=== PATIENT | female | born 1955 | race Caucasian/White ===

== ENCOUNTER 2021-10-28 18:46 | Emergency (ER) | payer BC, OTHER ==
[~2021-10-28] VITALS: Ht 157.5 cm; Wt 89.1 kg
[~2021-10-28 18:46] MED LIST: ASPI-611 PO; ATOR40TA PO; FERR325T28 PO; FURO-150 PO; HYDR-3965 PO; LEVO750T46 PO; LISI20TA28 PO; LOP12.5T PO
[2021-10-28 19:18] LABS: BASOPHILS # (AUTO) 0.1 X10'3 (0-0.2); BASOPHILS % (AUTO) 0.8 % (0-1); EOSINOPHILS # (AUTO) 0.4 X10'3 (0-0.9); EOSINOPHILS % (AUTO) 5.3 % (0-6); HEMATOCRIT 33.1 % (35.0-45.0); HEMOGLOBIN 10.7 g/dl (12.0-16.0); LYMPHOCYTES # (AUTO) 1.9 X10'3 (1.1-4.8); LYMPHOCYTES % (AUTO) 26.6 % (21-51); MEAN CORPUSCULAR HEMOGLOBIN 26.1 PG (27.0-31.0); MEAN CORPUSCULAR HGB CONC 32.2 g/dL (33.0-36.5); MONOCYTES # (AUTO) 0.5 X10'3 (0-0.9); MONOCYTES % (AUTO) 6.7 % (2-12); NEUTROPHILS # (AUTO) 4.2 X10'3 (1.8-7.7); NEUTROPHILS % (AUTO) 60.6 % (42-75); PLATELET COUNT 206 X10'3 (140-440); RED BLOOD COUNT 4.08 X10'6 (4.20-5.60); RED CELL DISTRIBUTION WIDTH 15.6 % (11.5-14.5)
[2021-10-28 19:34] LABS: ALANINE AMINOTRANSFERASE 14 U/L (12-78); ALBUMIN 3.1 G/DL (3.4-5.0); ALBUMIN/GLOBULIN RATIO 0.8 (1.1-1.5); ALKALINE PHOSPHATASE 84 IU/L (46-116); ANION GAP 7 (8-16); ASPARTATE AMINO TRANSFERASE 15 U/L (10-37); BILIRUBIN,TOTAL 0.2 MG/DL (0.1-1.0); BLOOD UREA NITROGEN 11 MG/DL (7-18); BUN/CREATININE RATIO 16.9 (6.6-38.0); CALCIUM 8.5 MG/DL (8.5-10.1); CHLORIDE 105 MMOL/L (99-107); CREATININE 0.65 MG/DL (0.40-0.90); GLUCOSE 135 MG/DL (70-104); POTASSIUM 3.4 MMOL/L (3.5-5.1); SODIUM 144 MMOL/L (135-145); TOTAL CARBON DIOXIDE 32.3 MMOL/L (24-32); eGFR > 90 ML/MIN
[2021-10-28 19:55] VITALS: BP 149/72
== END 2021-10-28 19:57 | disposition home or self-care (01) ==
LOC: ER 18:46
DX: R07.89 Other chest pain (principal); R05.9 Cough, unspecified; I25.10 Atherosclerotic heart disease of native coronary artery without angina pectoris; Z95.5 Presence of coronary angioplasty implant and graft; Z88.8 Allergy status to other drugs, medicaments and biological substances; Z79.82 Long term (current) use of aspirin; Z79.899 Other long term (current) drug therapy
CPT/HCPCS: 36415; 71045; 80053; 83880; 84484; 85025; 93005; 99285

== ENCOUNTER 2022-02-25 15:59 | Emergency (ER) | payer BC ==
[~2022-02-25] VITALS: Ht 157.5 cm; Wt 93.6 kg
[~2022-02-25 15:59] MED LIST changes: -HYDR-3965 PO; -LEVO750T46 PO; +LEVO750T68 PO
[2022-02-25 17:42] LABS: BASOPHILS # (AUTO) 0.1 X10'3 (0-0.2); BASOPHILS % (AUTO) 0.7 % (0-1); EOSINOPHILS # (AUTO) 0.1 X10'3 (0-0.9); EOSINOPHILS % (AUTO) 1.3 % (0-6); HEMATOCRIT 40.3 % (35.0-45.0); HEMOGLOBIN 12.9 g/dl (12.0-16.0); LYMPHOCYTES # (AUTO) 1.9 X10'3 (1.1-4.8); LYMPHOCYTES % (AUTO) 18.3 % (21-51); MEAN CORPUSCULAR HEMOGLOBIN 25.7 PG (27.0-31.0); MEAN CORPUSCULAR VOLUME 80.2 FL (78-98); MONOCYTES # (AUTO) 0.8 X10'3 (0-0.9); MONOCYTES % (AUTO) 7.1 % (2-12); NEUTROPHILS # (AUTO) 7.7 X10'3 (1.8-7.7); NEUTROPHILS % (AUTO) 72.6 % (42-75); PLATELET COUNT 246 X10'3 (140-440); RED BLOOD COUNT 5.02 X10'6 (4.20-5.60); RED CELL DISTRIBUTION WIDTH 15.5 % (11.5-14.5); WHITE BLOOD COUNT 10.6 X10'3 (4.5-11.0)
[2022-02-25 18:01] LABS: ALANINE AMINOTRANSFERASE 11 U/L (12-78); ALBUMIN 3.9 G/DL (3.4-5.0); ALKALINE PHOSPHATASE 95 IU/L (46-116); ANION GAP 8 (8-16); ASPARTATE AMINO TRANSFERASE 1 U/L (10-37); BILIRUBIN,TOTAL 0.2 MG/DL (0.1-1.0); BLOOD UREA NITROGEN 21 MG/DL (7-18); BUN/CREATININE RATIO 31.8 (6.6-38.0); CALCIUM 9.5 MG/DL (8.5-10.1); CHLORIDE 106 MMOL/L (99-107); CREATININE 0.66 MG/DL (0.40-0.90); GLUCOSE 118 MG/DL (70-104); POTASSIUM 4.3 MMOL/L (3.5-5.1); SODIUM 144 MMOL/L (135-145); TOTAL CARBON DIOXIDE 30.2 MMOL/L (24-32); TOTAL PROTEIN 7.9 G/DL (6.4-8.2); eGFR 89 ML/MIN
[2022-02-25 21:39] VITALS: BP 142/77
== END 2022-02-25 21:46 | disposition home or self-care (01) ==
LOC: ER 15:59
DX: R77.8 Other specified abnormalities of plasma proteins (principal); I10 Essential (primary) hypertension; R07.89 Other chest pain; Z88.6 Allergy status to analgesic agent; Z88.8 Allergy status to other drugs, medicaments and biological substances
CPT/HCPCS: 36415; 71045; 80053; 83880; 84484; 85025; 93005; 99285

== ENCOUNTER 2022-03-23 05:08 | Emergency (ER) | payer BC ==
[~2022-03-23] VITALS: Ht 157.5 cm; Wt 94.1 kg
[2022-03-23] MEDS ORDERED: furosemide 10 MG/1 ML 10ml inj IV ONE (05:50)
[2022-03-23 06:35] LABS: BASOPHILS # (AUTO) 0.1 X10'3 (0-0.2); BASOPHILS % (AUTO) 1.1 % (0-1); EOSINOPHILS # (AUTO) 0.1 X10'3 (0-0.9); EOSINOPHILS % (AUTO) 0.9 % (0-6); HEMATOCRIT 37.6 % (35.0-45.0); HEMOGLOBIN 12.2 g/dl (12.0-16.0); LYMPHOCYTES # (AUTO) 1.3 X10'3 (1.1-4.8); LYMPHOCYTES % (AUTO) 11.3 % (21-51); MEAN CORPUSCULAR HEMOGLOBIN 26.2 PG (27.0-31.0); MEAN CORPUSCULAR HGB CONC 32.5 g/dL (33.0-36.5); MEAN CORPUSCULAR VOLUME 80.6 FL (78-98); MEAN PLATELET VOLUME 10.1 FL (7.4-10.4); MONOCYTES # (AUTO) 0.5 X10'3 (0-0.9); MONOCYTES % (AUTO) 4.9 % (2-12); NEUTROPHILS # (AUTO) 9.2 X10'3 (1.8-7.7); NEUTROPHILS % (AUTO) 81.8 % (42-75); PLATELET COUNT 242 X10'3 (140-440); RED BLOOD COUNT 4.66 X10'6 (4.20-5.60); RED CELL DISTRIBUTION WIDTH 15.9 % (11.5-14.5); WHITE BLOOD COUNT 11.2 X10'3 (4.5-11.0)
[2022-03-23 06:42] LABS: ALANINE AMINOTRANSFERASE 28 U/L (12-78); ALBUMIN 3.7 G/DL (3.4-5.0); ALBUMIN/GLOBULIN RATIO 0.9 (1.1-1.5); ALKALINE PHOSPHATASE 96 IU/L (46-116); ANION GAP 5 (8-16); ASPARTATE AMINO TRANSFERASE 20 U/L (10-37); BILIRUBIN,TOTAL 0.3 MG/DL (0.1-1.0); BLOOD UREA NITROGEN 18 MG/DL (7-18); BUN/CREATININE RATIO 26.9 (6.6-38.0); CHLORIDE 104 MMOL/L (99-107); CREATININE 0.67 MG/DL (0.40-0.90); GLUCOSE 153 MG/DL (70-104); POTASSIUM 4.4 MMOL/L (3.5-5.1); SODIUM 141 MMOL/L (135-145); TOTAL CARBON DIOXIDE 32.3 MMOL/L (24-32); eGFR 88 ML/MIN
[2022-03-23 09:19] VITALS: BP 146/87
== END 2022-03-23 09:22 | disposition home or self-care (01) ==
LOC: ER 05:08
DX: I11.0 Hypertensive heart disease with heart failure (principal); I50.9 Heart failure, unspecified; E78.00 Pure hypercholesterolemia, unspecified; Z88.6 Allergy status to analgesic agent; Z88.8 Allergy status to other drugs, medicaments and biological substances
CPT/HCPCS: 36415; 71045; 80053; 83880; 84484; 85025; 85610; 93005; 96374; 99285; J1940

== ENCOUNTER 2022-04-11 03:39 | Inpatient (IN) | payer BC ==
[~2022-04-11] VITALS: Ht 157.5 cm; Wt 100.0 kg
[2022-04-11] MEDS ORDERED: aspirin 325mg tablet PO ONE (04:35)
[2022-04-11 04:45] LABS: BASOPHILS # (AUTO) 0.1 X10'3 (0-0.2); EOSINOPHILS # (AUTO) 0.2 X10'3 (0-0.9); EOSINOPHILS % (AUTO) 2.1 % (0-6); HEMATOCRIT 37.2 % (35.0-45.0); HEMOGLOBIN 11.9 g/dl (12.0-16.0); LYMPHOCYTES # (AUTO) 2.3 X10'3 (1.1-4.8); LYMPHOCYTES % (AUTO) 24.8 % (21-51); MEAN CORPUSCULAR HEMOGLOBIN 26.1 PG (27.0-31.0); MEAN CORPUSCULAR VOLUME 81.6 FL (78-98); MEAN PLATELET VOLUME 10.6 FL (7.4-10.4); MONOCYTES # (AUTO) 0.7 X10'3 (0-0.9); MONOCYTES % (AUTO) 7.3 % (2-12); NEUTROPHILS # (AUTO) 6.1 X10'3 (1.8-7.7); NEUTROPHILS % (AUTO) 64.8 % (42-75); PLATELET COUNT 242 X10'3 (140-440); RED BLOOD COUNT 4.56 X10'6 (4.20-5.60); RED CELL DISTRIBUTION WIDTH 15.7 % (11.5-14.5); WHITE BLOOD COUNT 9.5 X10'3 (4.5-11.0)
[2022-04-11 04:50] LABS: ALANINE AMINOTRANSFERASE 24 U/L (12-78); ALBUMIN 3.5 G/DL (3.4-5.0); ALBUMIN/GLOBULIN RATIO 0.9 (1.1-1.5); ALKALINE PHOSPHATASE 85 IU/L (46-116); ANION GAP 5 (8-16); ASPARTATE AMINO TRANSFERASE 14 U/L (10-37); BILIRUBIN,TOTAL 0.2 MG/DL (0.1-1.0); BLOOD UREA NITROGEN 27 MG/DL (7-18); BUN/CREATININE RATIO 25.7 (6.6-38.0); CALCIUM 8.8 MG/DL (8.5-10.1); CHLORIDE 105 MMOL/L (99-107); CREATININE 1.05 MG/DL (0.40-0.90); GLUCOSE 192 MG/DL (70-104); POTASSIUM 4.2 MMOL/L (3.5-5.1); SODIUM 140 MMOL/L (135-145); TOTAL CARBON DIOXIDE 30.5 MMOL/L (24-32); TOTAL PROTEIN 7.5 G/DL (6.4-8.2); eGFR 52 ML/MIN
[2022-04-11 04:57] LABS: MAGNESIUM 1.9 MG/DL (1.5-2.4)
[2022-04-11 05:25] LABS: LARGE PLATELETS FEW; PLATELET ESTIMATE NORMAL
[2022-04-11] MEDS ORDERED: SACU1TAB (08:22)
[2022-04-11] MEDS ORDERED: SACU1TAB PO (08:25)
[2022-04-11] MEDS ORDERED: FURO-150 PO (08:26)
[2022-04-11] MEDS ORDERED: ATOR40TA PO (08:26)
[2022-04-11] MEDS ORDERED: ASPI81TA52 PO (08:26)
[2022-04-11] MEDS ORDERED: ISOS30TA9 PO (08:27)
[2022-04-11] MEDS ORDERED: MULT-1133 PO (08:28)
[2022-04-11] MEDS ORDERED: METO-384 PO (08:28)
[2022-04-11] MEDS ORDERED: ASCO500C17 PO (08:29)
[2022-04-11] MEDS ORDERED: ACET-1025 PO (08:31)
[2022-04-11] MEDS ORDERED: isosorbide mononitrate 30mg tab.SR.24H PO ONE (09:00)
[2022-04-11] MEDS ORDERED: sacubitril/valsartan 24mg-26mg tablet PO ONE (09:00)
[2022-04-11] MEDS ORDERED: metoprolol succinate 25mg (24-HOUR) SR. Tablet PO ONE (09:00)
[2022-04-11] MEDS ORDERED: furosemide 20MG tablet PO ONE (09:00)
[2022-04-11] MEDS ORDERED: atorvastatin 20mg tablet PO ONE (09:00)
[2022-04-11] MEDS ORDERED: aminophylline 500mg/20ml vial IV PRN (11:55)
[2022-04-11] MEDS ORDERED: ondansetron/PF 4mg/2ml inj IV PRN (11:55)
[2022-04-11] MEDS ORDERED: potassium Cl 20 mEq SR tablet PO PRN ×2 (11:55)
[2022-04-11] MEDS ORDERED: PERFLUTREN PROTEIN-A MICROSPHR (Optison) 0.22 MG/ML 3ML VIAL IV ONE (11:55)
[2022-04-11] MEDS ORDERED: magnesium hydroxide 30ml (MOM) UD suspension PO PRN (11:55)
[2022-04-11] MEDS ORDERED: regadenoson 0.4mg/5ml syringe IV PRN (11:55)
[2022-04-11] MEDS ORDERED: morphine 2 MG/ML inj. syringe IV PRN ×2 (11:55)
[2022-04-11] MEDS ORDERED: magnesium Cl slow-release 64mg tablet PO PRN (11:55)
[2022-04-11] MEDS ORDERED: magnesium 4gm in 100ml NS 100 ML IV PRN (11:55)
[2022-04-11] MEDS ORDERED: mag hydrox/Alum hydrox/simeth 30ml oral suspension PO PRN (11:55)
[2022-04-11] MEDS ORDERED: metoprolol tartrate 1mg/ml inj IV PRN (11:55)
[2022-04-11] MEDS ORDERED: nitroGLYCERIN 0.4mg SUBLingual tab SL PRN ×2 (11:55→16:35)
[2022-04-11] MEDS ORDERED: potassium Cl 40MEQ/1/2NS 520ml 520 ML IV PRN (11:55)
[2022-04-11] MEDS ORDERED: bisacodyl 10mg suppository rectal RC PRN (11:55)
[2022-04-11 13:46] LABS: HEMOGLOBIN A1C 6.8 % (4.5-6.2)
[2022-04-11] MEDS: normal saline 1000ml 1,000 ML IV SCH (13:52)
--- NOTE | 2022-04-11 14:52 | NUR ---
report given to vianney in PCU
--- NOTE | 2022-04-11 14:53 | NUR ---
Patient in room ED 3. I have received report from Barbi in the ED and had the opportunity to ask questions and assume patient care.
[2022-04-11 16:15] VITALS: BP 144/53
[2022-04-11] MEDS ORDERED: LISI5TAB22 PO (16:20)
[2022-04-11] MEDS ORDERED: ISOS30TA84 PO (16:20)
[2022-04-11] MEDS ORDERED: FURO20TA4 PO (16:20)
[2022-04-11] MEDS ORDERED: NITR0.4T48 SL (16:21)
[2022-04-11] MEDS ORDERED: METO25TA6 PO (16:21)
[2022-04-11] MEDS ORDERED: FERR325T33 PO (16:21)
--- NOTE | 2022-04-11 16:24 | NUR ---
Pt arrived to the floor, addressed pt concerns, tucked in
[2022-04-11] MEDS: pantoprazole 40mg Tablet.DR PO SCH (16:55)
[2022-04-11 18:00] VITALS: BP 136/59
--- NOTE | 2022-04-11 18:41 | NUR ---
Problems reprioritized. Patient report given, questions answered & plan of care reviewed with Sarai.
--- NOTE | 2022-04-11 18:59 | NUR ---
Patient in room PCU 3017. I have received report from Vero MONTE and had the opportunity to ask questions and assume patient care.
[2022-04-11] MEDS: furosemide 20MG tablet PO SCH (19:25)
[2022-04-11] MEDS: K and/or MAG REPLACEMENT MC SCH (20:00)
[2022-04-11] MEDS: heparin, porcine 5000 units/ml vial SQ SCH (20:00)
[2022-04-11] MEDS: docusate sod 100mg capsule PO SCH (20:00)
[2022-04-11 22:00] VITALS: BP 118/63
[2022-04-12 02:00] VITALS: BP_SYST 104; BP_SYST 109; BP_DIAS 48
[2022-04-12 06:00] VITALS: BP 146/70
--- NOTE | 2022-04-12 07:09 | NUR ---
Patient in room PCU 3017. I have received report from Sarai and had the opportunity to ask questions and assume patient care.
[2022-04-12 07:48] LABS: BASOPHILS # (AUTO) 0.1 X10'3 (0-0.2); BASOPHILS % (AUTO) 0.7 % (0-1); EOSINOPHILS # (AUTO) 0.2 X10'3 (0-0.9); EOSINOPHILS % (AUTO) 2.1 % (0-6); HEMATOCRIT 39.7 % (35.0-45.0); HEMOGLOBIN 12.9 g/dl (12.0-16.0); LYMPHOCYTES # (AUTO) 1.9 X10'3 (1.1-4.8); LYMPHOCYTES % (AUTO) 23.6 % (21-51); MEAN CORPUSCULAR HEMOGLOBIN 26.5 PG (27.0-31.0); MEAN CORPUSCULAR HGB CONC 32.5 g/dL (33.0-36.5); MEAN CORPUSCULAR VOLUME 81.6 FL (78-98); MEAN PLATELET VOLUME 9.7 FL (7.4-10.4); MONOCYTES # (AUTO) 0.6 X10'3 (0-0.9); MONOCYTES % (AUTO) 7.4 % (2-12); NEUTROPHILS # (AUTO) 5.4 X10'3 (1.8-7.7); NEUTROPHILS % (AUTO) 66.2 % (42-75); PLATELET COUNT 249 X10'3 (140-440); RED BLOOD COUNT 4.86 X10'6 (4.20-5.60); RED CELL DISTRIBUTION WIDTH 16.2 % (11.5-14.5); WHITE BLOOD COUNT 8.1 X10'3 (4.5-11.0)
[2022-04-12] MEDS: normal saline 1000ml 1,000 ML IV SCH (07:55)
[2022-04-12] MEDS: pantoprazole 40mg Tablet.DR PO SCH (07:57)
[2022-04-12] MEDS: docusate sod 100mg capsule PO SCH (07:57)
[2022-04-12] MEDS: furosemide 20MG tablet PO SCH (07:58)
[2022-04-12] MEDS ORDERED: ascorbic acid 500mg tablet PO SCH (08:00)
[2022-04-12] MEDS ORDERED: aspirin 81mg, enteric-coated 1 TAB TABLET.DR PO SCH (08:00)
[2022-04-12] MEDS ORDERED: multivitamins, therapeutics tablet PO SCH (08:00)
[2022-04-12] MEDS ORDERED: ferrous sulfate 325mg tablet PO SCH (08:00)
[2022-04-12] MEDS ORDERED: isosorbide mononitrate 30mg tab.SR.24H PO SCH (08:00)
[2022-04-12] MEDS: K and/or MAG REPLACEMENT MC SCH (08:00)
[2022-04-12] MEDS: heparin, porcine 5000 units/ml vial SQ SCH (08:00)
[2022-04-12] MEDS ORDERED: metoprolol succinate 25mg (24-HOUR) SR. Tablet PO SCH (08:00)
[2022-04-12 08:21] LABS: ALANINE AMINOTRANSFERASE 24 U/L (12-78); ALBUMIN 3.6 G/DL (3.4-5.0); ALBUMIN/GLOBULIN RATIO 0.9 (1.1-1.5); ALKALINE PHOSPHATASE 87 IU/L (46-116); ANION GAP 7 (8-16); ASPARTATE AMINO TRANSFERASE 16 U/L (10-37); BILIRUBIN,TOTAL 0.3 MG/DL (0.1-1.0); BLOOD UREA NITROGEN 21 MG/DL (7-18); BUN/CREATININE RATIO 28.8 (6.6-38.0); CHLORIDE 104 MMOL/L (99-107); CHOL/HDL RATIO 4.6 (0.00-4.99); CHOLESTEROL 235 MG/DL (0-200); CREATININE 0.73 MG/DL (0.40-0.90); GLUCOSE 137 MG/DL (70-104); HDL CHOLESTEROL 51 MG/DL (35-60); LDL CHOLESTEROL 148 MG/DL (50-100); PHOSPHORUS 4.3 MG/DL (2.3-4.5); POTASSIUM 4.4 MMOL/L (3.5-5.1); SODIUM 143 MMOL/L (135-145); TOTAL CARBON DIOXIDE 32.3 MMOL/L (24-32); TOTAL PROTEIN 7.7 G/DL (6.4-8.2); TRIGLYCERIDES 211 MG/DL (20-135); eGFR 80 ML/MIN
[2022-04-12] MEDS ORDERED: spironolactone 25 MG tablet PO SCH (08:30)
--- NOTE | 2022-04-12 08:30 | NUR ---
Problems reprioritized. Patient report given, questions answered & plan of care reviewed with Vero MONTE.
[2022-04-12 09:00] VITALS: BP 128/66
--- NOTE | 2022-04-12 09:01 | NUR ---
Message: Re: Alejandro in 3017B pt c/o chest discomfort, 01/24, now 09/23, charge took EKG to ED, no stemi, now BP 128/66, stress test 3 wks ago Vero
[2022-04-12 10:00] VITALS: BP 116/61
[2022-04-12 11:33] LABS: D-DIMER 1.88 MG/L FEU (0-0.50)
[2022-04-12] MEDS ORDERED: iohexol 350MG/ML 100ml bottle IV ONE (13:34)
--- NOTE | 2022-04-12 16:37 | NUR ---
Message: [email or web address], JUST NOTICED CTA REPORT IS AVAILABLE FOR 3017B. THX.
[2022-04-12] MEDS ORDERED: PANT40TA54 PO (16:40)
--- NOTE | 2022-04-12 18:12 | NUR ---
Reviewed discharge instructions with pt. Pt verbalized understanding. Pt is alert, oriented and was able to dress without assistance. Pt has a follow up appointment already scheduled for the first week of April with her primary and Dr. Collier. Pt stayed for dinner then was wheeled downstairs to be driven home by her son.
[2022-04-12] MEDS ORDERED: sacubitril/valsartan 24mg-26mg tablet PO SCH (20:00)
[2022-04-12] MEDS ORDERED: METF-1203 PO (20:42)
[2022-04-12] MEDS ORDERED: atorvastatin 20mg tablet PO SCH ×2 (21:00)
== END 2022-04-12 19:11 | disposition home or self-care (01) | DRG 392 ==
LOC: ER 03:40 → ED HOLD 12:00 → EDBEDREQ 14:32 → PCU 3S 15:28
PROVIDERS: ADMIT Family Medicine; ATTEND Family Medicine
PROC: B32T1ZZ Computerized Tomography (CT Scan) of Left Pulmonary Artery using Low Osmolar Contrast (ICD-10-PCS; principal; 2022-04-12)
PROC: B3201ZZ Computerized Tomography (CT Scan) of Thoracic Aorta using Low Osmolar Contrast (ICD-10-PCS; 2022-04-12)
PROC: B32S1ZZ Computerized Tomography (CT Scan) of Right Pulmonary Artery using Low Osmolar Contrast (ICD-10-PCS; 2022-04-12)
DX: K21.9 Gastro-esophageal reflux disease without esophagitis (principal); I50.20 Unspecified systolic (congestive) heart failure; Z68.41 Body mass index [BMI] 40.0-44.9, adult; E11.9 Type 2 diabetes mellitus without complications; E66.01 Morbid (severe) obesity due to excess calories; E78.00 Pure hypercholesterolemia, unspecified; R07.89 Other chest pain; I11.0 Hypertensive heart disease with heart failure; I25.10 Atherosclerotic heart disease of native coronary artery without angina pectoris; I25.2 Old myocardial infarction; Z28.310 Unvaccinated for COVID-19; Z79.82 Long term (current) use of aspirin; Z79.899 Other long term (current) drug therapy; Z80.49 Family history of malignant neoplasm of other genital organs; Z82.49 Family history of ischemic heart disease and other diseases of the circulatory system; Z87.891 Personal history of nicotine dependence; Z95.1 Presence of aortocoronary bypass graft; Z88.8 Allergy status to other drugs, medicaments and biological substances; Z88.6 Allergy status to analgesic agent
CPT/HCPCS: 36415; 71045; 71275; 80053; 80061; 83036; 83735; 83880; 84100; 84443; 84484; 85008; 85025; 85379; 87081; 93005; 93970; 99285; G0378; J1644; J3490; J7030; Q9967

== ENCOUNTER 2022-06-23 09:02 | Day surgery (SDC) | payer BC ==
[2022-06-19 13:09] LABS: BASOPHILS # (AUTO) 0.1 X10'3 (0-0.2); EOSINOPHILS # (AUTO) 0.2 X10'3 (0-0.9); EOSINOPHILS % (AUTO) 2.9 % (0-6); HEMATOCRIT 40.3 % (35.0-45.0); LYMPHOCYTES # (AUTO) 1.6 X10'3 (1.1-4.8); LYMPHOCYTES % (AUTO) 18.8 % (21-51); MEAN CORPUSCULAR HEMOGLOBIN 26.5 PG (27.0-31.0); MEAN CORPUSCULAR HGB CONC 32.3 g/dL (33.0-36.5); MEAN CORPUSCULAR VOLUME 81.9 FL (78-98); MEAN PLATELET VOLUME 9.7 FL (7.4-10.4); MONOCYTES # (AUTO) 0.5 X10'3 (0-0.9); MONOCYTES % (AUTO) 5.5 % (2-12); NEUTROPHILS % (AUTO) 71.8 % (42-75); PLATELET COUNT 273 X10'3 (140-440); RED BLOOD COUNT 4.92 X10'6 (4.20-5.60); RED CELL DISTRIBUTION WIDTH 15.6 % (11.5-14.5); WHITE BLOOD COUNT 8.3 X10'3 (4.5-11.0)
[2022-06-19 13:16] LABS: APTT 32 SECONDS (22-32)
[2022-06-19 13:18] LABS: ALBUMIN 3.9 G/DL (3.4-5.0); ANION GAP 2 (8-16); BLOOD UREA NITROGEN 17 MG/DL (7-18); CALCIUM 9.2 MG/DL (8.5-10.1); CHLORIDE 103 MMOL/L (99-107); CHOL/HDL RATIO 3.8 (0.00-4.99); CHOLESTEROL 215 MG/DL (0-200); CREATININE 0.74 MG/DL (0.40-0.90); GLUCOSE 151 MG/DL (70-104); HDL CHOLESTEROL 56 MG/DL (35-60); LDL CHOLESTEROL 130 MG/DL (50-100); POTASSIUM 4.3 MMOL/L (3.5-5.1); SODIUM 140 MMOL/L (135-145); TOTAL CARBON DIOXIDE 34.8 MMOL/L (24-32); TRIGLYCERIDES 206 MG/DL (20-135); eGFR 78 ML/MIN
[2022-06-23] VITALS (12 sets, daily range): BP systolic 76–149; BP diastolic 35–77
[~2022-06-23] VITALS: Ht 157.5 cm; Wt 102.1 kg
[~2022-06-23 09:02] MED LIST changes: +ACET-1025 PO; +ASCO500C17 PO; -ASPI-611 PO; +ASPI81TA52 PO; -FERR325T28 PO; +FERR325T33 PO; +ISOS30TA84 PO; -LEVO750T68 PO; -LISI20TA28 PO; -LOP12.5T PO; +METO-384 PO; +MULT-1133 PO; +NITR0.4T48 SL; +PANT40TA54 PO; +SACU1TAB PO
[2022-06-23] MEDS ORDERED: LORazepam 0.5 MG tablet PO PRN (09:25)
[2022-06-23] MEDS ORDERED: diphenhydrAMINE 25mg capsule PO PRN (09:25)
[2022-06-23] MEDS ORDERED: normal saline 1,000 ML IV SCH (09:25)
[2022-06-23] MEDS ORDERED: METO-395 PO (09:51)
[2022-06-23] MEDS ORDERED: EMPA10TA PO (09:51)
[2022-06-23] MEDS ORDERED: nitroGLYCERIN-Tridil 50MG/D5W 250 ML IV ONE (12:48)
[2022-06-23] MEDS ORDERED: iohexol 350MG/ML 100ml bottle IV ONE ×2 (12:48→13:51)
[2022-06-23] MEDS ORDERED: midazolam 1 mg/ML 2ml injection ONE ×2 (12:48→13:30)
[2022-06-23] MEDS ORDERED: fentaNYL/PF 50MCG/1 ML 2ML syringe ONE ×2 (12:48→13:30)
[2022-06-23] MEDS ORDERED: heparin 1,000unit/ml 10ml vial 10 ML ONE ×2 (12:48→13:49)
[2022-06-23] MEDS ORDERED: verapamil 2.5 mg/ml inj IV ONE (12:48)
[2022-06-23] MEDS ORDERED: LIDOcaine 1% (10mg/ml) 2ml vial ONE (12:48)
[2022-06-23] MEDS ORDERED: LIDOcaine 1% 30ml preserv. free vial ONE (13:35)
[2022-06-23] MEDS ORDERED: clopidogrel 300mg tablet ONE (13:50)
[2022-06-23] MEDS ORDERED: aspirin 325mg tablet ONE (13:50)
[2022-06-23] MEDS ORDERED: hydrALAZINE 20mg/ml inj. IV ONE (14:03)
[2022-06-23] MEDS ORDERED: nitroGLYCERIN 0.4mg SUBLingual tab SL ONE (15:24)
[2022-06-23] MEDS ORDERED: HYDROcodone/acetaminophen 5mg/325mg tablet PO PRN (15:50)
[2022-06-23] MEDS ORDERED: HYDROcodone/acetaminophen 10/325mg tab PO PRN (15:50)
== END 2022-06-23 17:10 | disposition home or self-care (01) ==
LOC: SSTAY O 09:02
PROVIDERS: ATTEND Student in an Organized Health Care Education/Training Program
DX: R07.89 Other chest pain (principal); I25.810 Atherosclerosis of coronary artery bypass graft(s) without angina pectoris; I11.0 Hypertensive heart disease with heart failure; I50.9 Heart failure, unspecified; E11.9 Type 2 diabetes mellitus without complications; E66.9 Obesity, unspecified; Z68.41 Body mass index [BMI] 40.0-44.9, adult; E78.5 Hyperlipidemia, unspecified; I25.2 Old myocardial infarction; Z88.8 Allergy status to other drugs, medicaments and biological substances; Z79.82 Long term (current) use of aspirin; Z79.84 Long term (current) use of oral hypoglycemic drugs; Z79.899 Other long term (current) drug therapy; Z98.890 Other specified postprocedural states
CPT/HCPCS: 36415; 80048; 80061; 85025; 85610; 85730; 93005; 93459; 99152; 99153; C1725; C1751; C1760; C1769; C1874; C1894; C9600; J0360; J1644; J2250; J3010; J3490; J7030; Q9967; 93458

== ENCOUNTER 2022-09-11 19:21 | Emergency (ER) | payer BC ==
[~2022-09-11] VITALS: Ht 157.5 cm; Wt 104.5 kg
[~2022-09-11 19:21] MED LIST changes: +EMPA10TA PO; -FERR325T33 PO; +METO-395 PO; -NITR0.4T48 SL; -PANT40TA54 PO
[2022-09-11 20:11] LABS: BASOPHILS # (AUTO) 0.1 X10'3 (0-0.2); BASOPHILS % (AUTO) 0.9 % (0-1); EOSINOPHILS # (AUTO) 0.1 X10'3 (0-0.9); EOSINOPHILS % (AUTO) 1.3 % (0-6); HEMATOCRIT 42.5 % (35.0-45.0); HEMOGLOBIN 13.7 g/dl (12.0-16.0); LYMPHOCYTES # (AUTO) 1.9 X10'3 (1.1-4.8); MEAN CORPUSCULAR HEMOGLOBIN 26.3 PG (27.0-31.0); MEAN CORPUSCULAR HGB CONC 32.3 g/dL (33.0-36.5); MEAN CORPUSCULAR VOLUME 81.3 FL (78-98); MEAN PLATELET VOLUME 10.2 FL (7.4-10.4); MONOCYTES # (AUTO) 0.6 X10'3 (0-0.9); MONOCYTES % (AUTO) 6.5 % (2-12); NEUTROPHILS # (AUTO) 5.9 X10'3 (1.8-7.7); NEUTROPHILS % (AUTO) 69.3 % (42-75); PLATELET COUNT 237 X10'3 (140-440); RED BLOOD COUNT 5.22 X10'6 (4.20-5.60); RED CELL DISTRIBUTION WIDTH 16.2 % (11.5-14.5); WHITE BLOOD COUNT 8.6 X10'3 (4.5-11.0)
[2022-09-11 20:24] LABS: ALANINE AMINOTRANSFERASE 24 U/L (12-78); ALBUMIN 3.6 G/DL (3.4-5.0); ALBUMIN/GLOBULIN RATIO 0.9 (1.1-1.5); ALKALINE PHOSPHATASE 99 IU/L (46-116); ANION GAP 7 (8-16); ASPARTATE AMINO TRANSFERASE 9 U/L (10-37); BILIRUBIN,TOTAL 0.3 MG/DL (0.1-1.0); BLOOD UREA NITROGEN 26 MG/DL (7-18); BUN/CREATININE RATIO 26.3 (10.0-20.0); CALCIUM 9.3 MG/DL (8.5-10.1); CHLORIDE 99 MMOL/L (99-107); CREATININE 0.99 MG/DL (0.40-0.90); POTASSIUM 4.2 MMOL/L (3.5-5.1); SODIUM 135 MMOL/L (135-145); TOTAL CARBON DIOXIDE 29.3 MMOL/L (24-32); TOTAL PROTEIN 7.6 G/DL (6.4-8.2); eGFR 56 ML/MIN
[2022-09-11 20:35] LABS: GLUCOSE 491 MG/DL (70-104)
[2022-09-11 21:15] VITALS: BP 128/53
[2022-09-11 21:15] LABS: CLARITY,URINE CLOUDY (Clear); COLOR,URINE YELLOW (Yellow); GLUCOSE, URINE >=1000 mg/dl (Neg); KETONES,URINE NEGATIVE (Neg); LEUKOCYTE ESTERASE ,URINE SMALL (Neg); NITRITES, URINE NEGATIVE (Neg); OCCULT BLOOD,URINE SMALL (Neg); PROTEIN,URINE NEGATIVE (Neg); UROBILINOGEN,URINE 0.2 E.U/dL (0.2-1.0)
[2022-09-11 21:28] LABS: UA COLLECTION TYPE CLN CATCH MIDSTREAM
[2022-09-11 21:30] LABS: WBC,URINE TNTC /HPF (0-4)
[2022-09-11 21:31] LABS: BACTERIA,URINE 2+ /HPF (Neg); MUCUS STRANDS FEW /LPF (Neg); SQUAMOUS EPITHELIAL CELL,UR FEW /LPF (FEW); TRANSITIONAL EPI CELLS,URINE FEW /HPF; WBC CLUMPS,URINE FEW /HPF (NEGATIVE)
[2022-09-11] MEDS ORDERED: cephalexin 500mg capsule PO ONE (23:10)
[2022-09-11] MEDS ORDERED: CEPH-585 PO (23:44)
[2022-09-11] MEDS ORDERED: METF-900 PO (23:44)
== END 2022-09-11 23:52 | disposition home or self-care (01) ==
LOC: ER 19:22
DX: E11.65 Type 2 diabetes mellitus with hyperglycemia (principal); N39.0 Urinary tract infection, site not specified; I11.0 Hypertensive heart disease with heart failure; I50.9 Heart failure, unspecified; E78.00 Pure hypercholesterolemia, unspecified; Z88.8 Allergy status to other drugs, medicaments and biological substances
CPT/HCPCS: 36415; 80053; 81001; 82948; 84484; 85025; 87077; 87088; 87186; 93005; 99284

== ENCOUNTER 2023-04-24 16:39 | Emergency (ER) | payer BC ==
[~2023-04-24] VITALS: Ht 157.5 cm; Wt 101.4 kg
[~2023-04-24 16:39] MED LIST changes: -ACET-1025 PO; +ATOR-2 PO; -EMPA10TA PO; +GLYB5TAB7 PO; +LOSA25TA41 PO; +METF-438 PO; +METF-900 PO; +NITR0.4T48 SL; +PANT-47 PO; -SACU1TAB PO; +SPIR25TA5 PO
[2023-04-24 16:49] VITALS: TEMP 98.6
[2023-04-24 17:11] LABS: BASOPHILS # (AUTO) 0.1 X10'3 (0-0.2); BASOPHILS % (AUTO) 0.6 % (0-1); EOSINOPHILS # (AUTO) 0.2 X10'3 (0-0.9); EOSINOPHILS % (AUTO) 1.5 % (0-6); HEMOGLOBIN 12.4 g/dl (12.0-16.0); LYMPHOCYTES # (AUTO) 2.1 X10'3 (1.1-4.8); MEAN CORPUSCULAR HEMOGLOBIN 26.2 PG (27.0-31.0); MEAN CORPUSCULAR HGB CONC 32.6 g/dL (33.0-36.5); MEAN CORPUSCULAR VOLUME 80.5 FL (78-98); MEAN PLATELET VOLUME 9.5 FL (7.4-10.4); MONOCYTES # (AUTO) 0.7 X10'3 (0-0.9); MONOCYTES % (AUTO) 6.8 % (2-12); NEUTROPHILS # (AUTO) 7.1 X10'3 (1.8-7.7); NEUTROPHILS % (AUTO) 70.1 % (42-75); PLATELET COUNT 290 X10'3 (140-440); RED BLOOD COUNT 4.73 X10'6 (4.20-5.60); RED CELL DISTRIBUTION WIDTH 15.3 % (11.5-14.5); WHITE BLOOD COUNT 10.1 X10'3 (4.5-11.0)
[2023-04-24 17:19] LABS: ALANINE AMINOTRANSFERASE 26 U/L (12-78); ALBUMIN 3.6 G/DL (3.4-5.0); ALBUMIN/GLOBULIN RATIO 0.9 (1.1-1.5); ALKALINE PHOSPHATASE 91 IU/L (46-116); ANION GAP 9 (8-16); ASPARTATE AMINO TRANSFERASE 13 U/L (10-37); BILIRUBIN,TOTAL 0.3 MG/DL (0.1-1.0); BLOOD UREA NITROGEN 14 MG/DL (7-18); BUN/CREATININE RATIO 14.7 (10.0-20.0); CHLORIDE 103 MMOL/L (99-107); CREATININE 0.95 MG/DL (0.40-0.90); GLUCOSE 147 MG/DL (70-104); SODIUM 141 MMOL/L (135-145); TOTAL CARBON DIOXIDE 28.6 MMOL/L (24-32); TOTAL PROTEIN 7.6 G/DL (6.4-8.2); eCRCL 45 ML/MIN; eGFR 58 ML/MIN
[2023-04-24 17:25] LABS: PRO BRAIN NATRIURETIC PEPTIDE 378 PG/ML (0-125)
[2023-04-24] MEDS ORDERED: aspirin 81mg tab.chew PO ONE (17:30)
[2023-04-24 19:40] VITALS: BP 128/72; PULSE 81; RESP 18; O2SAT 95
== END 2023-04-24 19:51 | disposition home or self-care (01) ==
LOC: ER 16:40
DX: R07.89 Other chest pain (principal); I11.0 Hypertensive heart disease with heart failure; I50.9 Heart failure, unspecified; E78.00 Pure hypercholesterolemia, unspecified; E11.9 Type 2 diabetes mellitus without complications; Z88.8 Allergy status to other drugs, medicaments and biological substances; Z79.82 Long term (current) use of aspirin; Z79.899 Other long term (current) drug therapy
CPT/HCPCS: 36415; 71045; 80053; 83880; 84484; 85025; 93005; 99285

== ENCOUNTER 2023-11-29 09:02 | Emergency (ER) | payer BC ==
[~2023-11-29] VITALS: Ht 157.5 cm; Wt 93.2 kg
[2023-11-29 09:29] LABS: BASOPHILS # (AUTO) 0.1 X10'3 (0-0.2); BASOPHILS % (AUTO) 1.1 % (0-1); EOSINOPHILS # (AUTO) 0.1 X10'3 (0-0.9); EOSINOPHILS % (AUTO) 1.6 % (0-6); HEMATOCRIT 36.6 % (35.0-45.0); HEMOGLOBIN 11.7 g/dl (12.0-16.0); LYMPHOCYTES # (AUTO) 1.4 X10'3 (1.1-4.8); LYMPHOCYTES % (AUTO) 16.5 % (21-51); MEAN PLATELET VOLUME 9.5 FL (7.4-10.4); MONOCYTES # (AUTO) 0.5 X10'3 (0-0.9); MONOCYTES % (AUTO) 5.8 % (2-12); NEUTROPHILS # (AUTO) 6.6 X10'3 (1.8-7.7); PLATELET COUNT 253 X10'3 (140-440); RED BLOOD COUNT 4.69 X10'6 (4.20-5.60); RED CELL DISTRIBUTION WIDTH 16.2 % (11.5-14.5); WHITE BLOOD COUNT 8.8 X10'3 (4.5-11.0)
[2023-11-29 09:47] LABS: ALBUMIN 3.6 G/DL (3.4-5.0); ANION GAP 7 (8-16); BLOOD UREA NITROGEN 17 MG/DL (7-18); BUN/CREATININE RATIO 16.8 (10.0-20.0); CALCIUM 8.7 MG/DL (8.5-10.1); CHLORIDE 103 MMOL/L (99-107); CREATININE 1.01 MG/DL (0.40-0.90); GLUCOSE 160 MG/DL (70-104); POTASSIUM 4.2 MMOL/L (3.5-5.1); SODIUM 142 MMOL/L (135-145); TOTAL CARBON DIOXIDE 31.6 MMOL/L (24-32); eCRCL 42 ML/MIN; eGFR 54 ML/MIN
[2023-11-29] MEDS ORDERED: normal saline 1000ML IV soln IVB ONE (11:10)
[2023-11-29 11:17] VITALS: BP 150/64; PULSE 77; RESP 19; TEMP 98.2; O2SAT 96
[2023-11-29 11:27] LABS: BILIRUBIN,URINE NEGATIVE (Neg); CLARITY,URINE CLOUDY (Clear); COLOR,URINE YELLOW (Yellow); GLUCOSE, URINE NEGATIVE (Neg); KETONES,URINE NEGATIVE (Neg); LEUKOCYTE ESTERASE ,URINE NEGATIVE (Neg); NITRITES, URINE POSITIVE (Neg); OCCULT BLOOD,URINE NEGATIVE (Neg); PROTEIN,URINE NEGATIVE (Neg)
[2023-11-29 11:31] LABS: UA COLLECTION TYPE NON-SPECIFIED
[2023-11-29 11:32] LABS: SQUAMOUS EPITHELIAL CELL,UR MODERATE /LPF (FEW)
[2023-11-29 11:33] LABS: BACTERIA,URINE 4+ /HPF (Neg); RBC,URINE NONE SEEN /HPF (0-2)
[2023-11-29] MEDS ORDERED: CEFU250T95 PO (12:07)
[2023-11-29] MEDS ORDERED: ONDA-243 PO (12:09)
== END 2023-11-29 13:08 | disposition home or self-care (01) ==
LOC: ER 09:03
DX: R42 Dizziness and giddiness (principal); N39.0 Urinary tract infection, site not specified; I11.0 Hypertensive heart disease with heart failure; I50.9 Heart failure, unspecified; E11.9 Type 2 diabetes mellitus without complications; I25.10 Atherosclerotic heart disease of native coronary artery without angina pectoris; E78.00 Pure hypercholesterolemia, unspecified; Z88.8 Allergy status to other drugs, medicaments and biological substances; Z79.82 Long term (current) use of aspirin; Z79.2 Long term (current) use of antibiotics; Z79.899 Other long term (current) drug therapy; Z98.890 Other specified postprocedural states
CPT/HCPCS: 36415; 80048; 81001; 84484; 85025; 87077; 87088; 87186; 93005; 99284